=== PATIENT | male | born 1990 | race American Indian/Alaskan Native ===

== ENCOUNTER 2021-01-18 23:09 | Emergency (ER) | payer SELFPAY | END 2021-01-19 03:28 | disposition left against medical advice (07) | LOC: ED 23:09 | DX: R07.9 Chest pain, unspecified (principal); Z53.21 Procedure and treatment not carried out due to patient leaving prior to being seen by health care provider ==

== ENCOUNTER 2021-01-19 09:12 | Emergency (ER) | payer SELFPAY ==
[2021-01-19 09:58] VITALS: BP 122/69
--- NOTE | 2021-01-19 10:31 | XRay Report ---
XR chest routine 2V INDICATION / CLINICAL INFORMATION: cp. COMPARISON: None available. FINDINGS: SUPPORT DEVICES: None. HEART /PULMONARY VASCULATURE: No significant abnormality. LUNGS / PLEURA: No significant pulmonary or pleural abnormality. No pneumothorax. ADDITIONAL FINDINGS: No significant additional findings. IMPRESSION: 1. No acute findings. Signer Name: Acosta Parks MD Signed: 01/19/2021 10:26 AM Workstation Name: [id number]
--- NOTE | 2021-01-19 11:02 | Emergency Department Report ---
ED General Adult HPI - General Chief complaint: Chest Pain Stated complaint: CHEST PAIN Time Seen by Provider: 01/19/21 10:54 Source: patient Mode of arrival: Ambulatory Limitations: No Limitations - History of Present Illness Initial comments: Patient is a 30-year-old male presents emergency room complaints of chest pain that began a week ago. He states it is typically in the left chest but will sometimes radiate to the midsternal region. He states it feels like a sharp pain and lasts approximately a couple seconds. 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 He states occasionally when he feels the pain he feels short of breath but currently has no chest pain and no shortness of breath. He denies any pleuritic pain or exertional pain. He denies any fall or injury. He denies any radiation of the pain to the back arms or jaw. He denies any nausea, vomiting, diarrhea, cough, diaphoresis, leg swelling. pt denies any recent Travel, sick contacts, recent surgery, recent immobilization. No past medical history. No allergies to medications. He endorses tobacco and marijuana use. He states his only family cardiac history is his mother has CHF but no MIs. Severity scale (0 -10): 7 - Related Data Previous Rx's Medication Instructions Recorded Last Taken Type Naproxen 375 mg PO BID PRN #20 tablet 01/19/21 Unknown Rx Allergies Allergy/AdvReac Type Severity Reaction Status Date / Time No Known Allergies Allergy Unverified 09/08/15 14:46 ED Review of Systems ROS: Stated complaint: CHEST PAIN Other details as noted in HPI Comment: All other systems reviewed and negative ED Past Medical Hx - Past Medical History Previous Medical History?: No - Surgical History Past Surgical History?: Yes Additional Surgical History: TONSILLECTOMY - Social History Smoking Status: Current Every Day Smoker Substance Use Type: Alcohol, Marijuana - Medications Home Medications: Home Medications Medication Instructions Recorded Confirmed Last Taken Type Naproxen 375 mg PO BID PRN #20 tablet 01/19/21 Unknown Rx ED Physical Exam - General Limitations: No Limitations General appearance: alert, in no apparent distress - Head Head exam: Present: atraumatic, normocephalic - Eye Eye exam: Present: normal appearance - ENT ENT exam: Present: mucous membranes moist - Respiratory Respiratory exam: Present: normal lung sounds bilaterally, chest wall tenderness (reproducible left anterior chest wall ttp, no edema, no skin changes, no deformity, no ecchymosis, no crepitus ). Absent: respiratory distress, wheezes, rales, rhonchi, stridor, accessory muscle use, decreased breath sounds, prolonged expiratory - Cardiovascular Cardiovascular Exam: Present: regular rate, normal rhythm, normal heart sounds. Absent: systolic murmur, diastolic murmur, rubs, gallop - Neurological Exam Neurological exam: Present: alert, oriented X3 - Psychiatric Psychiatric exam: Present: normal affect, normal mood - Skin Skin exam: Present: warm, dry, intact ED Course Vital Signs 01/19/21 09:56 Temperature 98.5 F Pulse Rate 85 Respiratory 18 Rate Blood Pressure 122/69 [Right] O2 Sat by Pulse 98 Oximetry ED Medical Decision Making - Lab Data Result diagrams: 01/19/21 11:15 01/19/21 11:15 Lab Results 01/19/21 01/19/21 Range/Units 11:15 11:15 WBC 7.0 (4.5-11.0) K/mm3 RBC 4.64 (3.65-5.03) M/mm3 Hgb 14.8 (11.8-15.2) gm/dl Hct 44.6 (35.5-45.6) % MCV 96 H (84-94) fl MCH 32 (28-32) pg MCHC 33 (32-34) % RDW 12.9 L (13.2-15.2) % Plt Count 231 (140-440) K/mm3 Lymph % (Auto) 26.5 (13.4-35.0) % Millard % (Auto) 11.0 H (0.0-7.3) % Eos % (Auto) 1.1 (0.0-4.3) % Baso % (Auto) 0.6 (0.0-1.8) % Lymph # (Auto) 1.9 (1.2-5.4) K/mm3 Millard # (Auto) 0.8 (0.0-0.8) K/mm3 Eos # (Auto) 0.1 (0.0-0.4) K/mm3 Baso # (Auto) 0.0 (0.0-0.1) K/mm3 Seg Neutrophils % 60.8 (40.0-70.0) % Seg Neutrophils # 4.3 (1.8-7.7) K/mm3 Sodium 139 (137-145) mmol/L Potassium 4.7 (3.6-5.0) mmol/L Chloride 103.9 (98-107) mmol/L Carbon Dioxide 27 (22-30) mmol/L Anion Gap 13 mmol/L BUN 14 (9-20) mg/dL Creatinine 0.9 (0.8-1.3) mg/dL Estimated GFR > 60 ml/min BUN/Creatinine Ratio 16 % Glucose 81 (75-100) mg/dL Calcium 9.8 (8.4-10.2) mg/dL Total Bilirubin 0.40 (0.1-1.2) mg/dL AST 22 (5-40) units/L ALT 21 (7-56) units/L Alkaline Phosphatase 65 (35-129) units/L Troponin T < 0.010 (0.00-0.029) ng/mL Total Protein 6.8 (6.3-8.2) g/dL Albumin 4.4 (3.9-5) g/dL Albumin/Globulin Ratio 1.8 % - EKG Data EKG shows normal: sinus rhythm, axis, intervals, QRS complexes Rate: normal - EKG Data 01/19/21 12:[address] elevation likely from normal early repolarization No STEMI - Radiology Data Radiology results: report reviewed Ordering Physician: CARLOS RODRIGUEZ MD Date of Service: 01/19/21 Procedure(s): XR chest routine 2V Accession Number(s): [id number] cc: CARLOS RODRIGUEZ MD Fluoro Time In Minutes: XR chest routine 2V INDICATION / CLINICAL INFORMATION: cp. COMPARISON: None available. FINDINGS: SUPPORT DEVICES: None. HEART /PULMONARY VASCULATURE: No significant abnormality. LUNGS / PLEURA: No significant pulmonary or pleural abnormality. No pneumothorax. ADDITIONAL FINDINGS: No significant additional findings. IMPRESSION: 1. No acute findings. Signer Name: Jarrod Parks MD Signed: 01/19/2021 10:26 AM Workstation Name: [id number] Transcribed By: JS Dictated By: JARROD PARKS MD Electronically Authenticated By: JARROD PARKS MD Signed Date/Time: 01/19/21 1026 DD/ 1026 TD/TT: - Medical Decision Making Patient is a 30-year-old male presents emergency room complaints of chest pain that began a week ago. He states it is typically in the left chest but will sometimes radiate to the midsternal region. He states it feels like a sharp pain and lasts approximately a couple seconds. 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 He states occasionally when he feels the pain he feels short of breath but currently has no chest pain and no shortness of breath. He denies any pleuritic pain or exertional pain. He denies any fall or injury. He denies any radiation of the pain to the back arms or jaw. He denies any nausea, vomiting, diarrhea, cough, diaphoresis, leg swelling. pt denies any recent Travel, sick contacts, recent surgery, recent immobilization. No past medical history. No allergies to medications. He endorses tobacco and marijuana use. He states his only family cardiac history is his mother has CHF but no MIs. Vitals are normal. EKG with normal early repolarization, otherwise normal. Chest x-ray with no acute process. Labs are normal. Troponin is negative. PERC criteria negative for PE, PE unlikely. Heart score is 1, low risk for cardiac event. Pain is reproducible, could be due to costochondritis. Will have patient follow-up with primary care doctor. Patient given prescription for naproxen. Advised patient Please take medication as prescribed as needed. Follow-up with your primary care doctor. Follow-up with a information systems security manager. Return to emergency room for any new or worsening symptoms. Critical care attestation.: If time is entered above; I have spent that time in minutes in the direct care of this critically ill patient, excluding procedure time. ED Disposition Clinical Impression: Chest pain Qualifiers: Chest pain type: unspecified Qualified Code(s): R07.9 - Chest pain, unspecified Disposition: HOME / SELF CARE / HOMELESS Is pt being admited?: No Does the pt Need Aspirin: No Condition: Stable Instructions: Nonspecific Chest Pain, Adult Additional Instructions: Please take medication as prescribed as needed. Follow-up with your primary care doctor. Follow-up with a information systems security manager. Return to emergency room for any new or worsening symptoms. Prescriptions: Naproxen 375 mg PO BID PRN #20 tablet PRN Reason: pain Referrals: YESY VILLELA MD [Staff Physician] - 3-5 Days [facility] [Provider Group] - 3-5 Days SHERRON ESPINOZA MD [Staff Physician] - 3-5 Days Forms: Work/School Release Form(ED) Time of Disposition: 12:02 Print Language: OMANI HEART Score - HEART Score History: Slightly suspicious EKG: Normal Age: < 45 Risk factors: 1-2 risk factors Troponin: Troponin T < 0.010 ng/mL (0.00-0.029) 01/19/21 11:15 Troponin: < normal limit HEART Score: 1
[2021-01-19 11:45] LABS: Basophils % (Auto) 0.6 % (0.0-1.8); Eosinophils # (Auto) 0.1 K/mm3 (0.0-0.4); Eosinophils % (Auto) 1.1 % (0.0-4.3); Hematocrit 44.6 % (35.5-45.6); Hemoglobin 14.8 gm/dl (11.8-15.2); Lymphocytes # (Auto) 1.9 K/mm3 (1.2-5.4); Lymphocytes % (Auto) 26.5 % (13.4-35.0); Mean Corpuscular HGB Conc 33 % (32-34); Mean Corpuscular Volume 96 fl (84-94); Monocytes # (Auto) 0.8 K/mm3 (0.0-0.8); Platelet Count 231 K/mm3 (140-440); Red Blood Count 4.64 M/mm3 (3.65-5.03); Red Cell Distribution Width 12.9 % (13.2-15.2)
[2021-01-19 11:58] LABS: Alanine Aminotransferase 21 units/L (7-56); Albumin 4.4 g/dL (3.9-5); BUN/Creatinine Ratio 16; Blood Urea Nitrogen 14 mg/dL (9-20); Calcium 9.8 mg/dL (8.4-10.2); Hemolysis Index 9
--- NOTE | 2021-01-19 17:50 | Electrocardiograph Report ---
[facility] Test Date: 2021-01-19 Test Time: 10:07:02 Pat Name: ASAD WALLS Department: Room: Gender: M [employer] Worker: YOVANI : 1990 Requested By: LORENA RILEY Order Number: [id number] Reading MD: Juju Hutton Measurements Intervals [place] Rate: 69 P: 56 IA: 167 QRS: 61 QRSD: 91 T: 51 QT: 368 QTc: 394 Interpretive Statements Sinus rhythm Early repolarization ST changes No previous ECG available for comparison Electronically Signed On 01-19-2021 17:49:38 EDT by Juju Hutton
== END 2021-01-19 12:10 | disposition home or self-care (01) ==
LOC: ED 09:12
DX: R07.89 Other chest pain (principal); F17.200 Nicotine dependence, unspecified, uncomplicated; F12.90 Cannabis use, unspecified, uncomplicated; Z90.89 Acquired absence of other organs; Z72.89 Other problems related to lifestyle; Z79.899 Other long term (current) drug therapy
CPT/HCPCS: 36415; 71046; 80053; 84484; 85025; 93005; 99283

== ENCOUNTER 2021-03-30 08:17 | Emergency (ER) | payer SELFPAY ==
[2021-03-30 08:23] VITALS: BP 130/73
--- NOTE | 2021-03-30 09:42 | Emergency Department Report ---
ED Male HPI - General Chief complaint: Urogenital-Male Stated complaint: problems urinating Time Seen by Provider: 03/30/21 08:26 Source: patient Mode of arrival: Ambulatory Limitations: No Limitations - History of Present Illness Initial comments: This is a 30-year-old male nontoxic, well nourished in appearance, no acute signs of distress presents to the ED with c/o of dysuria and difficulty urinating x several days. Patient denies any penile discharge, bleeding, ulcers or lesions. Denies any testicular pain or swelling. Patient denies any back or flank pain. Patient denies any pelvic or abdominal pain. Patient denies any nausea, vomiting, chest pain, shortness of breathe, fever, chills, headache, back pain, numbness, tingling, stiff neck. Patient denies any other urinary symptoms. Patient denies any allergies or PMH. MD Complaint: dysuria -: days(s) Location: penis Radiation: none Severity: mild Severity scale (0 -10): 3 Quality: burning Consistency: intermittent Improves with: none Worsens with: urination dysuria. denies: discharge, swelling, mass, rash, urinary retention, blood in urine, fever, nausea/vomiting, incontinence - Related Data Previous Rx's Medication Instructions Recorded Last Taken Type Naproxen 375 mg PO BID PRN #20 tablet 01/19/21 Unknown Rx Allergies Allergy/AdvReac Type Severity Reaction Status Date / Time No Known Allergies Allergy Verified 03/30/21 08:22 ED Review of Systems ROS: Stated complaint: problems urinating Other details as noted in HPI Comment: All other systems reviewed and negative Constitutional: denies: chills, fever Eyes: denies: eye pain, eye discharge, vision change ENT: denies: ear pain, throat pain Respiratory: denies: cough, shortness of breath, wheezing Cardiovascular: denies: chest pain, palpitations Endocrine: no symptoms reported Gastrointestinal: denies: abdominal pain, nausea, diarrhea Genitourinary: dysuria. denies: urgency, frequency, hematuria, discharge, testicular pain, testicular mass Musculoskeletal: denies: back pain, joint swelling, arthralgia Skin: denies: rash, lesions Neurological: denies: headache, weakness, paresthesias Psychiatric: denies: anxiety, depression Hematological/Lymphatic: denies: easy bleeding, easy bruising ED Past Medical Hx - Surgical History Additional Surgical History: TONSILLECTOMY - Social History Smoking Status: Current Every Day Smoker Substance Use Type: Alcohol, Marijuana - Medications Home Medications: Home Medications Medication Instructions Recorded Confirmed Last Taken Type Naproxen 375 mg PO BID PRN #20 tablet 01/19/21 Unknown Rx ED Physical Exam - General Limitations: No Limitations General appearance: alert, in no apparent distress - Head Head exam: Present: atraumatic, normocephalic - Eye Eye exam: Present: normal appearance - Neck Neck exam: Present: normal inspection, full ROM. Absent: lymphadenopathy - Respiratory Respiratory exam: Absent: respiratory distress - Cardiovascular Cardiovascular Exam: Present: regular rate - GI/Abdominal GI/Abdominal exam: Present: soft, normal bowel sounds. Absent: distended, tenderness, guarding, rebound, rigid, diminished bowel sounds - Back Exam Back exam: Present: normal inspection, full ROM. Absent: tenderness, CVA tenderness (R), CVA tenderness (L), muscle spasm, paraspinal tenderness, vertebral tenderness, rash noted - Neurological Exam Neurological exam: Present: alert, oriented X3, normal gait - Psychiatric Psychiatric exam: Present: normal affect, normal mood - Skin Skin exam: Present: warm, dry, intact, normal color. Absent: rash ED Course Vital Signs 03/30/21 08:22 Temperature 98.3 F Pulse Rate 78 Respiratory 16 Rate Blood Pressure 130/73 O2 Sat by Pulse 98 Oximetry - Reevaluation(s) Reevaluation #1: 03/30/21 09:42 Patient is speaking in full sentences with no signs of distress noted. ED Medical Decision Making - Medical Decision Making Patient eloped from the ER. RN stated tried to contact patient but was unsuccessful. I was not able to evaluate patient or perform a full diagnostic testing as patient eloped. Urine and gonorrhea chlamydia ordered but patient did not provided. Patient eloped to my knowledge. Critical care attestation.: If time is entered above; I have spent that time in minutes in the direct care of this critically ill patient, excluding procedure time. ED Disposition Clinical Impression: Dysuria, Difficulty urinating Disposition: LEFT AWOL/ELOPED Is pt being admited?: No Condition: Undetermined
== END 2021-03-30 09:29 | disposition left against medical advice (07) ==
LOC: ED 08:17
DX: R30.0 Dysuria (principal); R39.198 Other difficulties with micturition; F17.200 Nicotine dependence, unspecified, uncomplicated; F10.20 Alcohol dependence, uncomplicated; F12.90 Cannabis use, unspecified, uncomplicated
CPT/HCPCS: 99281

== ENCOUNTER 2021-10-25 08:50 | Emergency (ER) | payer SELFPAY ==
[2021-10-25 11:38] LABS: Bilirubin,Urine NEG (Negative); Blood,Urine SM (Negative); Color,Urine Amber (Yellow); Mucus,Urine 3+ /HPF
[2021-10-25 11:39] LABS: WBC,Urine > 182.0 /HPF (0.0-6.0)
--- NOTE | 2021-10-25 13:06 | Emergency Department Report ---
ED Male HPI - General Chief complaint: Urogenital-Male Stated complaint: CHECK UP Source: patient Mode of arrival: Ambulatory Limitations: No Limitations - History of Present Illness Initial comments: 31-year-old male presents to the ED complaining greenish penile discharge x3 days. He states that he has unprotected sex 2 weeks ago and noticed penile discharge x3 days ago. Patient denies any abdominal pain present time. He states pain is worse with urination. Denies any fever or chills at present time. Patient states he has had prior STD in the past. Patient is alert and oriented x3. No acute distress noted .no ill appearance noted MD Complaint: penile discharge Onset/Timin -: days(s) Radiation: none Improves with: none Worsens with: urination discharge - Related Data Sexually active: Yes Previous Rx's Medication Instructions Recorded Last Taken Type Naproxen 375 mg PO BID PRN #20 tablet 01/19/21 Unknown Rx DOXYCYCLINE Hyclate [Vibramycin 100 mg PO Q12HR 10 Days #20 capsule 10/25/21 Unknown Rx CAP] Allergies Allergy/AdvReac Type Severity Reaction Status Date / Time No Known Allergies Allergy Verified 03/30/21 08:22 ED Review of Systems ROS: Stated complaint: CHECK UP Other details as noted in HPI Constitutional: denies: chills, fever Eyes: denies: eye pain, eye discharge, vision change ENT: denies: ear pain, throat pain Respiratory: denies: cough, shortness of breath, wheezing Cardiovascular: denies: chest pain, palpitations Endocrine: no symptoms reported Gastrointestinal: denies: abdominal pain, nausea, diarrhea Genitourinary: discharge. denies: urgency, dysuria Musculoskeletal: denies: back pain, joint swelling, arthralgia Skin: denies: rash, lesions Neurological: denies: headache, weakness, paresthesias Psychiatric: denies: anxiety, depression Hematological/Lymphatic: denies: easy bleeding, easy bruising ED Past Medical Hx - Past Medical History Previous Medical History?: No - Surgical History Past Surgical History?: Yes Additional Surgical History: TONSILLECTOMY - Social History Smoking Status: Current Every Day Smoker Substance Use Type: Alcohol, Marijuana - Medications Home Medications: Home Medications Medication Instructions Recorded Confirmed Last Taken Type Naproxen 375 mg PO BID PRN #20 tablet 01/19/21 Unknown Rx DOXYCYCLINE Hyclate [Vibramycin 100 mg PO Q12HR 10 Days #20 capsule 10/25/21 Unknown Rx CAP] ED Physical Exam - General Limitations: No Limitations General appearance: alert, in no apparent distress - Head Head exam: Present: atraumatic, normocephalic - Eye Eye exam: Present: normal appearance - ENT ENT exam: Present: mucous membranes moist - Neck Neck exam: Present: normal inspection - Respiratory Respiratory exam: Present: normal lung sounds bilaterally. Absent: respiratory distress - Cardiovascular Cardiovascular Exam: Present: regular rate, normal rhythm. Absent: systolic murmur, diastolic murmur, rubs, gallop - GI/Abdominal GI/Abdominal exam: Present: soft, normal bowel sounds - Rectal Rectal exam: Present: deferred - Extremities Exam Extremities exam: Present: normal inspection - Back Exam Back exam: Present: normal inspection - Neurological Exam Neurological exam: Present: alert, oriented X3 - Psychiatric Psychiatric exam: Present: normal affect, normal mood - Skin Skin exam: Present: warm, dry, intact, normal color. Absent: rash ED Course Vital Signs 10/25/21 10/25/21 10:50 13:25 Temperature 98.4 F Pulse Rate 57 L 70 Respiratory 16 16 Rate Blood Pressure 107/71 126/80 [Left] O2 Sat by Pulse 97 100 Oximetry ED Medical Decision Making - Medical Decision Making 31-year-old male presents to the ED complaining greenish penile discharge x3 days. He states that he has unprotected sex 2 weeks ago and noticed penile discharge x3 days ago. Patient denies any abdominal pain present time. He states pain is worse with urination. Denies any fever or chills at present time. Patient states he has had prior STD in the past. Patient is alert and oriented x3. No acute distress noted .no ill appearance noted. Patient given Rocephin 500 mg IM the ED. patient instructed to have protected sex. Patient informed to follow-up with the health department and to have a full STD panel drawn. Rechecked the patient is resting quietly quietly and comfortable and feeling better. I discussed the results of diagnostic study, my clinical impression and the plan for further treatment with the patient. Patient agrees with plan and discharge at this present time. All question addressed. I have given the patient instruction regarding a diagnosis ,expectation ,follow- up and return precaution. I explained to the patient that emergent condition may arise and to return to the ED for new worsen and any new persisting condition. I have explained the importance of following up with the primary care physician or referral physician listed below has instructed. The patient verbalized understanding of discharge instruction. Abnormal Lab Results 10/25/21 11:05 Urine Color Arlene Urine Turbidity Cloudy Urine pH 6.0 Ur Specific [place] 1.028 Urine Protein 100 mg/dl Urine Glucose (UA) Neg Urine Ketones Neg Urine Blood Sm Urine Nitrite Neg Urine Bilirubin Neg Urine Urobilinogen 2.0 Ur Leukocyte Esterase Lg Urine WBC (Auto) > 182.0 H Urine RBC (Auto) 8.0 U Epithel Cells (Auto) 1.0 Urine WBC Clumps 3+ Urine Mucus 3+ Critical care attestation.: If time is entered above; I have spent that time in minutes in the direct care of this critically ill patient, excluding procedure time. ED Disposition Clinical Impression: STD exposure Disposition: 01 HOME / SELF CARE / HOMELESS Is pt being admited?: No Does the pt Need Aspirin: No Condition: Stable Instructions: Chlamydia, Female, [id number], Preventing Sexually Transmitted Infections, Adult, Gonorrhea Additional Instructions: Medication as prescribed return to ED for any worsening symptom Prescriptions: DOXYCYCLINE Hyclate [Vibramycin CAP] 100 mg PO Q12HR 10 Days #20 capsule Referrals: [facility] [Outside] - 3-5 Days Forms: Work/School Release Form(ED) Time of Disposition: 13:08
[2021-10-25] MEDS: LIDOCAINE-MPF (1%) 10 MG/1 ML VIAL 5 ML INFILTRATI ONE (13:15)
[2021-10-25 13:26] VITALS: BP 126/80
== END 2021-10-25 13:25 | disposition home or self-care (01) ==
LOC: ED 08:50
DX: Z20.2 Contact with and (suspected) exposure to infections with a predominantly sexual mode of transmission (principal); F17.200 Nicotine dependence, unspecified, uncomplicated; Z79.899 Other long term (current) drug therapy
CPT/HCPCS: 81001; 96372; 99283; J0696; J3490